=== PATIENT | male | born 1945 | race Caucasian/White ===

== ENCOUNTER 2016-11-02 15:39 | Emergency (ER) | payer MEDICARE, OTHER ==
[2016-11-02 17:18] VITALS: BP 139/74
[2016-11-02] MEDS ORDERED: Bacitracin Oint 1 GM U/D Packet TOP ONE (17:23)
[2016-11-02] MEDS ORDERED: Diphtheria,Pertussis(Acell),Tetanus Vaccine 0.5 ML SDV IM ONE (17:24)
--- NOTE | 2016-11-02 17:38 | EDM.PDOC ---
ED HPI GENERAL MEDICAL PROBLEM - General Chief Complaint: Laceration Stated Complaint: TRIPPED AND FELL AND CUT RT HAND Time Seen by Provider: 11/02/16 16:58 Source of Information: Reports: Patient History Limitations: Reports: No Limitations - History of Present Illness INITIAL COMMENTS - FREE TEXT/NARRATIVE: Patient tripped and fell he came down on a bolt which caused a laceration of his right palm. There is no neurologic dysfunction. There is no vascular compromise. There is no bony deformity. Patient has a jagged 2 cm laceration which required primary repair. 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) - Related Data Allergies Allergy/AdvReac Type Severity Reaction Status Date / Time No Known Allergies Allergy Verified 11/02/16 16:58 Home Meds: Home Meds Phenytoin Sodium Extended [Dilantin] 5 tab PO DAILY 11/02/16 [History] Primidone [Mysoline] 1 tab PO DAILY 11/02/16 [History] Warfarin [Coumadin] 1 tab PO DAILY 11/02/16 [History] Past Medical History - Past Health History Medical/Surgical History: Denies Medical/Surgical History HEENT History: Reports: Cataract Cardiovascular History: Reports: Blood Clots/VTE/DVT Neurological History: Reports: Brain Injury, Seizure - Past Surgical History GI Surgical History: Reports: Hernia, Inguinal Musculoskeletal Surgical History: Reports: Hip Replacement Social & Family History - Tobacco Use Smoking Status *Q: Never Smoker ED ROS GENERAL - Review of Systems Review Of Systems: See Below Constitutional: Reports: No Symptoms HEENT: Reports: No Symptoms Respiratory: Reports: No Symptoms Cardiovascular: Reports: No Symptoms Endocrine: Reports: No Symptoms GI/Abdominal: Reports: No Symptoms : Reports: No Symptoms Musculoskeletal: Reports: No Symptoms Skin: Reports: No Symptoms Neurological: Reports: No Symptoms Psychiatric: Reports: No Symptoms Hematologic/Lymphatic: Reports: No Symptoms ED EXAM, SKIN/RASH Exam: See Below Exam Limited By: No Limitations General Appearance: Alert, WD/WN, No Apparent Distress Eye Exam: Bilateral Eye: Normal Inspection Ears: Normal External Exam, Hearing Grossly Normal Nose: Normal Inspection Throat/Mouth: Normal Inspection, Normal Lips, Normal Voice Head: Atraumatic, Normocephalic Neck: Normal Inspection Respiratory/Chest: No Respiratory Distress Cardiovascular: Normal Peripheral Pulses Back Exam: Normal Inspection Extremities: Normal Inspection (There is a laceration right palm the rest is normal), Normal Range of Motion Neurological: Alert, Oriented, Normal Cognition, No Motor/Sensory Deficits Psychiatric: Normal Affect, Normal Mood Skin: Warm, Intact, Normal Color Location, Skin: Upper Extremity, Right Associated features: Tenderness ED SKIN PROCEDURES - Laceration/Wound Repair Right Hand Lac/wound length in cm: 2 Appearance: Stellate Distal NVT: neuro & vascular intact, no tendon injury Anesthetic Type: local Local anesthesia - Lidocaine (Xylocaine): 1% plain Local anesthetic volume: 2cc Skin prep: chlorhexidine (hibiciens), saline Exploration/Debridement/Repair: wound explored, no foreign material found Closed with: sutures Suture size: other (5-0 Ethilon) # of sutures: 3 Sterile dressing applied: nurse Tetanus status addressed: Yes Complications: No Course - Vital Signs Last Recorded V/S: Last Vital Signs Temp 96.6 F 11/02/16 17:16 Pulse 78 11/02/16 17:16 Resp 14 11/02/16 17:16 BP 139/74 11/02/16 17:16 Pulse Ox 99 11/02/16 17:16 - Orders/Labs/Meds Orders: Active Orders 24 hr Category Date Time Status Procedure Tray at Bedside [RC] ASDIRECTED Care 11/02/16 17:23 Ordered Vaccines to be Administered [RC] PER UNIT ROUTINE Care 11/02/16 17:24 Ordered Meds: Medications Discontinued Medications Generic Name Dose Route Start Last Admin Trade Name Priyanka PRN Reason Stop Dose Admin Bacitracin 1 dose 11/02/16 17:23 11/02/16 17:31 Bacitracin Oint 1 Gm TOP 11/02/16 17:24 1 dose ONETIME ONE Administration Diphtheria/Tetanus/Acell Pertussis 0.5 ml 11/02/16 17:24 11/02/16 17:31 Adacel IM 11/02/16 17:25 0.5 ml .ONCE ONE Administration Lidocaine HCl 5 ml 11/02/16 17:23 11/02/16 17:31 Xylocaine-Mpf 1% INJECT 11/02/16 17:24 5 ml ONETIME ONE Administration Departure - Departure Time of Disposition: 17:36 Disposition: Home, Self-Care 01 Condition: good Clinical Impression: Laceration of right hand - Discharge Information Referrals: PCP,None [Primary Care Provider] - Forms: ED Department Discharge Additional Instructions: Patient seen in the emergency laceration of right palm. Laceration repaired with 3 interrupted sutures of 5-0 Ethilon. One percent Xylocaine was then seizure locally infiltrated The wound was cleansed and dressed with bacitracin ointment. Keep the wound clean dry and covered her healing process. Sutures can be removed in 7-10 days. Reevaluation is indicated if there is failure in healing such as infection developing. - Problem List & Annotations (1) Laceration of right hand SNOMED Code(s): 419316963 Code(s): S61.411A - LACERATION WITHOUT FOREIGN BODY OF RIGHT HAND, INIT ENCNTR Status: Acute Priority: Medium Current Visit: Yes Qualifiers: Encounter type: initial encounter Foreign body presence: without foreign body Qualified Code(s): S61.411A - Laceration without foreign body of right hand, initial encounter - Problem List Review Problem List Initiated/Reviewed/Updated: Yes - My Orders Last 24 Hours: My Active Orders 11/02/16 17:23 Procedure Tray at Bedside [RC] ASDIRECTED 11/02/16 17:24 Vaccines to be Administered [RC] PER UNIT ROUTINE - Assessment/Plan Last 24 Hours: My Active Orders 11/02/16 17:23 Procedure Tray at Bedside [RC] ASDIRECTED 11/02/16 17:24 Vaccines to be Administered [RC] PER UNIT ROUTINE
== END 2016-11-02 17:55 | disposition home or self-care (01) ==
LOC: JP.ED 15:39
DX: S61.411A Laceration without foreign body of right hand, initial encounter (principal); Z23 Encounter for immunization; Z86.718 Personal history of other venous thrombosis and embolism; Z79.899 Other long term (current) drug therapy; Z96.649 Presence of unspecified artificial hip joint; Z98.890 Other specified postprocedural states; W01.198A Fall on same level from slipping, tripping and stumbling with subsequent striking against other object, initial encounter
CPT/HCPCS: 12001; 90471; 90715; 99282-25; 99283-25

== ENCOUNTER 2016-11-13 12:47 | Emergency (ER) | payer MEDICARE, OTHER ==
[2016-11-13 12:56] VITALS: BP 127/74
== END 2016-11-13 13:06 | disposition home or self-care (01) ==
LOC: JP.ED 12:47 → JP.EDOUT 12:47
DX: Z48.02 Encounter for removal of sutures (principal)
CPT/HCPCS: 99281